=== PATIENT | female | born 1995 | race Caucasian/White ===

== ENCOUNTER 2025-03-30 01:40 | Inpatient (IN) ==
--- OUTSIDE RECORDS SUMMARY | 2025-03-30 01:50 | External Medical Summary | Summary of Care ---
Author Name Unknown Organization [facility] Address [address] [place] [address] Phone [phone] Care Team Providers Care Borderer Name Role Phone Isra Martins MD Primary Care Provider + Encounter Details Date Type Department Care Team (Late st Contact Info) Description 03/26/2025 8:00 AM EDT Office Visit Solar Sales Advisor Obstetrics Maternal Medicine, [facility] [address] [place] [address] Valentina Cole, DO [address], [place] [id number] Insulin controlled gestational diabetes mellitus (GDM) in third trimester*; Ultrasound for screening for growth restriction; 38 weeks gestation of Allergies Active Allergy Reactions Criticality Noted Date Comments Ragweed 08/07/2022 HAY documented as of this encounter (statuses as of 03/26/2025) Medications Fluticasone Propionate HFA 44 MCG/ACT Inhalation Aerosol (Flovent HFA)Indications :Allergic rhinitis due to animal hair and dander Inhale by mouth 1 Puff in the morning AND 1 Puff before bedtime. 10.6 g 12 Active Additional Information Patient not taking.Reported on 10/02/2024 Ventolin HFA 108 (90 Base) MCG/ACT Inhalation Aerosol Solution Inhale by mouth 2 Puffs every 4 hours as needed for Wheezing. 18 g 1 2 Active Additional Information Patient not taking.Reported on 05/30/2024 6.75-0.2 MG Oral Tablet Take by mouth. Act odessa Cetirizine HCl 10 MG Oral Tablet Chewable (ZyrTEC) Take 1 Tablet by mouth in the morning. Active Docusate Sodium 100 MG Oral Capsule (Colace) Take 1 Capsule by mouth in the morning. Active documented as of this encounter (statuses as of 03/26/2025) Active Problems Problem Noted Date Diagnosed Date Insulin controlled gestation al diabetes mellitus (GDM) in third trimester 11/17/2024 Overview (01/01/2025): 01/01/2025: per MyG message from patient: I wanted to add to medical history for this so it s correct in my file that I am on insulin for the gestational diabetes. I am currently taking 26 units for fasting at night, but I ve been back and forth with high and normal numbers so I think we may be increasing to 30 units soon. [facility] is not managing patient's gestational diabetes at this time. Assessment & Plan (03/26/2025 10:00 AM EDT): Assessment & Plan (02/26/2025 6:24 PM EDT): She presents for follow-up of growth secondary to GDMA2. Today's ultrasound notes the following: The estimated weight is appropriate for gestational age in the 61st percentile. The visualized anatomy is unremarkable in appearance. The SANIYA is normal. A BPP is 8/8. Assessment & Plan (11/17/2024 9:46 AM EST): The patient states that she was recently diagnosed with gestational diabetes and she is controlling it by diet alone. She states that her fasting values are elevated. I asked her what she was eating prior to going to bed and she states that she was eating a high-protein, low-carbohydrate snack. I told her that it may be that because of the low carbohydrate take at bedtime, she is becoming hypoglycemic in the middle of the night and her elevated blood sugars in the morning are the result of the hypoglycemic events at night. I told her that she should check her blood sugars at 2 or 3 in the morning to see what they are. If she is hypoglycemic in middle of the night, then the treatment would be increase in the carbohydrate intake prior to bedtime. Subchorionic hematoma in second trimester 2023 Overview (10/02/2024): Images from the original note were not included. 09/24/2024: Subchorionic hematoma noted on ultrasound: 1..3 x 1.3 x 1.8 cm Patient did experience vaginal bleeding in the past, two episodes of heavy bleeding and was seen in ER. Currently having vaginal spotting Mild cramping on occasion Assessment & Plan (11/17/2024 9:44 AM EST): I reviewed the ultrasound with her. The anatomy that was visualized appears unremarkable and the biometry is appropriate for the gestational age. The amniotic fluid volume is subjectively normal and the fetus is in the vertex presentation There is a subchorionic hematoma that directly overlies the placenta. The placenta itself is posterior and there is no placenta previa present.nd with her. She states that she has continued vaginal bleeding that is mostly brown maroon. Over the past several weeks, the amount of blood has decreased. I told her that I would expect for her to have continuing vaginal bleeding as the hematoma is directly over her cervix. We discussed the significance with the color of the blood, with right indicating fresh bleeding. We discussed the importance of come into the hospital for calling her primary OB if she has any leakage of clear fluid, bright red bleeding or cramping. Assessment & Plan (10/02/2024 12:59 PM EST): CONSIDERATIONS: Reviewed that the cause of subchorionic hemorrhage (TAMIR) is largely unknown. However, in the absence of vaginal bleeding, a small subchorionic hemorrhage (TAMIR) is not associated with an increased rate of poor outcomes. Most asymptomatic subchorionic hemorrhage (TAMIR) resolve by 20 weeks gestation. Subchorionic hemorrhage (TAMIR) associated with vaginal bleeding is associated with an increased risk for miscarriage, placental abruption, premature rupture of amniotic membranes, and labor/delivery. outcome associated with subchorionic hemorrhage (TAMIR) also relates to location, with worse outcomes observed for retroplacental hematomas, compared to marginal hematomas. The location, rather than the size of a subchorionic hemorrhage (TAMIR) may be the most important predictor of outcome. Evidence relating to the size of the hematoma and the risk of adverse outcomes is inconclusive. RECOMMENDATIONS: Expectant management is recommended with close monitoring of maternal tolerance of bleeding. Anxiety and depression 10/02/2024 Overview (10/02/2024): History of anxiety and depression No current medications Reports a stable mood in . Denies any suicidal or homicidal ideation. Reports she has a good support system at home. Assessment & Plan (10/02/2024 12:50 PM EST): CONSIDERATIONS: Untreated maternal anxiety and/or depression may be associated with an increased risk of multiple poor obstetrical outcomes including miscarriages, low weight, and delivery. Women with a history of anxiety or depression are at risk for recurrence both during and/or the period. Studies of first-trimester SSRI exposure do not demonstrate consistent data to support an increased risk for structural malformations. Anti-anxiety or depression medications have been associated with transient effects (withdrawal syndrome). RECOMMENDATIONS: Mental illness can and should be treated during when the benefits of treatment outweigh potential risks. Referral to behavioral health services as clinically indicated. Maternal asthma complicating Overview (10/02/2024): Managed with Albuterol as needed 10/02/24 last albuterol use: > 6 months ago Denies hospitalizations or intubations due to asthma Assessment & Plan (10/02/2024 12:50 PM EST): CONSIDERATIONS: Asthma symptoms may improve, worsen or remain unchanged in severity in . Asthma is generally managed the same in as in the non- patient, as asthma-control medications are considered safe in . If asthma is well-controlled with medications prior to , it is recommended to continue the same medication regimen during . A patient should seek medical care immediately if an asthma flare does not respond to therapy. Mild and well-controlled moderate asthma can be associated with excellent maternal and outcomes. Severe and poorly controlled asthma may be associated with increased morbidity and mortality. Asthma management includes monitoring of lung function with pulmonary function testing (when indicated), avoidance of triggers (such as tobacco smoke, mold, dust mite exposure, animal dander and cockroaches), and a step-care approach to pharmacologic therapy based on the severity of the patient's asthma. RECOMMENDATIONS: Inhaled corticosteroids are the mainstay of therapy for all patients except those with intermittent asthma. If patients are routinely requiring rescue inhaler (such as albuterol, Ventolin, ProAir, Atrovent, or Proventil) use more than twice weekly, we recommend adding a low-dose inhaled corticosteroid. [Pulmicort (budesonide) is preferred to use in .] If patients are routinely requiring rescue inhaler use daily, we recommend adding a combined low-dose inhaled corticosteroid/long-acting beta-agonist [such as Advair (fluticasone/salmeterol) or Symbicort (budesonide/formoterol)] or a medium dose inhaled corticosteroid. Patient should discuss these treatment options with her primary OB provider or PCP. Typically, patients do not need stress dose steroids as long as they continue their usual dose perioperatively (or during labor) and do not have primary renal failure or other problems with the pituitary axis. Medications such as prostaglandin F2a (including Hemabate), ergonovine, and indomethacin (in patients who are aspirin allergic) should be used with caution. Patients with moderate or severe persistent asthma should have Maternal- Medicine ultrasound for anatomy at 19-20 weeks. surveillance with growth ultrasounds and non-stress tests should be considered starting at 32 weeks. Supervision of high risk in [facility] 10/02/2024 Family history of von Willebrand disease 024 Overview (10/02/2024): Adolph (FOB) and Ike (son) both + von Willebrand disease Pt aware of possibility that this baby may have it, Plans to have genetic testing soon after . Genetic counseling in past. Plans follow up genetic counseling if needed, after delivery. 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 03/02/2022 Primary osteoarthritis of fi rst carpometacarpal joint of right hand 08/06/2019 Idiopathic scoliosis 03/17/2015 Dysmenorrhea 06/07/2013 Overview (03/19/2015): OCPs Screening for lipid disorders 06/05/2012 Estimated Date of Delivery Comme nts Yes 04/08/2025 Based on last me nstrual period of 07/02/2024 (Exact Date) documented as of this encounter (statuses as of 03/26/2025) Resolved Problems Problem Noted Date Diagnosed Date Resolved Date with 13 completed weeks gestation 06/13/2023 10/02/2024 Ganglion cyst 07/18/2014 08/06/2019 Constipation 11/22/2009 Overview (02/03/2016): ICD-10 update of inactive term documented as of this encounter (statuses as of 03/26/2025) Immunizations Name Administration Dates Next Due HPV Vaccine, 4-Valent 01/20/2015,08/26/2014,04/2014 Hepatitis A, Ped/Adol., 18 y ear and below, 2-Dose 01/20/2015,07/18/2014 Meningococcal Conjugate Vacc ine (Menactra/Menveo) 07/18/2014,06/05/2012 TDAP, Age 7 and older, IM (Adacel) 05/31/2011 Varicella Vaccine (Chicken Pox) 09/10/2003 documented as of this encounter Social History Tobacco Use Types Packs/Day Years Used Date Smoking Tobacco: Never Smokeless Tobacco: Never Comments:Vape in past, stopp ed with knowledge of the Alcohol Use Standard Drinks/Week Comments Not Currently 0 (1 standard drink = 0.6 oz pur e alcohol) social PHQ-2 Answer Date Recorded PHQ Adult Total Score 0 08/28/2022 Hunger Vital Sign Answer Date Recorded Within the past 12 months, y ou worried that your food would run out before you got the money to buy more. Never true 08/28/20 22 Within the past 12 months, t he food you bought just didn't last and you didn't have money to get more. 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 Normal growth with EFW 3216 g at 46%ile. Normal SANIYA at 11.8 cm. Cephalic presentation. BPP 06/19. I reviewed the ultrasound images. Stefani was given the opportunity to meet with me if she had any questions. Please refer to the ultrasound report for additional details about today's ultrasound examination. RECOMMENDATIONS: Follow up with MFM for ultrasound as clinically indicated. 2x weekly NSTs. See formal MFM consultation note. Thank you for allowing us to participate in the care of this patient. Please call with any questions. Valentina Cole DO 03/26/2025 9:59 AM documented in this encounter Miscellaneous Notes * Assessment & Plan Note - Valentina Cole DO - 03/26/2025 10:00 AM EDT Associated Problem(s): Insulin controlled gestational diabetes mellitus (GDM) in third trimester documented in this encounter Plan of Treatment Health Maintenance Due Date Last Done Comments Depression Monitoring 2008 Pneumococcal Vaccine: Pediatrics (0 to 5 Years) and At-Risk Patients (6 to 18 Years and 19+ Years) (1 of 2 - PCV) 2015 DTap/Tdap Vaccines (7 - Td or Tdap) 05/31/2021 05/31/2011, 07/10/2002, 06/21/1998, Additional history exists Pap Smear 11/02/2023 11/02/2020, 01/2018, 03/14/2018 COVID-19 Vaccine ( season) 2024 *SPIROMETRY ONCE FOR ASTHMA-ADULT 10/04/2024 Influenza Vaccine (FLU shot) (Season Ended) 2025 Hepatitis B Vaccine Completed 07/10/2002, 02/14/1997, 1996 MENINGOCOCCAL (MENACTRA/MENVEO) Completed 07/18/2014, 07/18/2014, 06/05/2012, Additional history exists HPV (Gardasil) Vaccine Completed 5, 08/26/2014, 07/18/2014 Gonorrhea / Chlamydia Screen Discontinued 03/14/2018, 06/22/2014 Meningitis B Vaccine (Bexsero/Trumemba) Aged Out No longer eligible based on patient's age to complete this topic documented as of this encounter Medical Devices Not on filedocumented as of this encounter Visit Diagnoses Diagnosis Subchorionic hematoma in first trimester, single or unspecified fetus- Primary Anxiety and depression Dysthymic disorder Maternal asthma complicating Other current maternal conditions classifiable elsewhere, complicating , childbirth, or the puerperium, unspecified as to episode of care Supervision of high risk in first trimester Unspecified high-risk with 13 completed weeks gestation Family history of von Willebrand disease Family history of other blood disorders Current severe episode of major depressive disorder without psychotic features without prior episode (HCC)- Primary Anxiety and depression Dysthymic disorder Maternal asthma complicating Other current maternal conditions classifiable elsewhere, complicating , childbirth, or the puerperium, unspecified as to episode of care Family history of von Willebrand disease Family history of other blood disorders Subchorionic hematoma in second trimester, single or unspecified fetus Diet controlled gestational diabetes mellitus (GDM) in second trimester Insulin controlled gestational diabetes mellitus (GDM) in third trimester- Primary Insulin controlled gestational diabetes mellitus (GDM) in third trimester- Primary Ultrasound for screening for growth restriction screening for growth retardation using ultrasonics 38 weeks gestation of state, incidental documented in this encounter Care Teams Borderer Relationship Specialty Start Date End Date Damaske, Isra Av, MD [address] [id number] PCP - General Family Medicine 03/17/15 documented as of this encounter
--- OUTSIDE RECORDS SUMMARY | 2025-03-30 01:50 | External Medical Summary | Summary of Care ---
Author Name Unknown Organization [facility] Address [address] [place] [address] Phone [phone] Care Team Providers Care Supervising Airplane Pilot Name Role Phone Isra Martins MD Primary Care Provider + Encounter Details Date Type Department Care Team (Late st Contact Info) Description 03/26/2025 8:00 AM EDT Office Visit Instructional Technologist Obstetrics Maternal Medicine, [facility] [address] [place] [address] Valentina Cole, DO [address] [place], [place] [id number] Insulin controlled gestational diabetes mellitus (GDM) in [...] may be increasing to 30 units soon. [facility] is not managing patient's gestational diabetes [...] 32 weeks. Supervision of high risk in [facility] 10/02/2024 Family history of von Willebrand disease [...] 03/26/2025) Immunizations Name Administration Dates Next Due DTP Vaccine 06/21/1998, 7,04/20/1997,02/17 DTaP Dipth/Tet/Acell Pertussis (Infanrix), Peds 07/10/2002 HIB PRP-T, 4 Dose, PF, IM (H iberix, ActHib) 03/22/1998,06/29/1997,04/20/1997,02/17 HPV Vaccine, 4-Valent 01/20/2015,08/26/2014,04/2014 Hepatitis A, Ped/Adol., 18 y ear and below, 2-Dose 01/20/2015,07/18/2014 Hepatitis B, 0-19 yrs 07/10/2002,02/14/1997,06/1997 MMR - Measles/Mumps/Rubella Vaccine 07/10/2002,0 12/22/1997 Meningococcal Conjugate Vacc ine (Menactra/Menveo) 07/18/2014,06/05/2012 OPV - Polio Virus Vaccine (Oral) 998,06/29/1997,04/20/1997,02/17 TDAP, Age 7 and older, IM (Adacel) 05/31/2011 Varicella Vaccine (Chicken Pox) 09/10/2003,12/22 documented as of this encounter Social History [...] incidental documented in this encounter Care Teams Supervising Airplane Pilot Relationship Specialty Start Date End Date Isra Martins MD [address] [id number] PCP - General Family Medicine 03/17/15 documented as of this encounter
--- NOTE | 2025-03-30 03:35 | History & Physical Report ---
Date of Service March 30, 2025 Assessment & Plan (1) Normal labor: Plan: Cervical change with prior repeat. Pain in suprapubic area noted. Will proceed now to repeat with tubal ligation. History of Present Illness Primary Care Provider: Paco Ajit Richardson, DO 29yo at 38w5d with history of prior in 2019, scheduled for RCS/BTL in 4 days. Stefani and her partner had intercourse last evening, and onset of contractions occurred thereafter. Contractions were every 2-3 minutes initially and have spaced further apart now, however have gradually become more painful. The pain is sharp and low in the suprapubic area and seems to correlate with both contractions and movements. No LOF, no VB, good FM. Allergies Allergy/AdvReac Type Severity Reaction Status Date / Time rabbit dander Allergy Severe Verified 03/23/25 14:49 No Known Drug Allergies Allergy Verified 03/23/25 14:49 Home Medications Medication Instructions Recorded Confirmed Type acetone (urine) test (Ketone Urine #50 ea 11/13/24 03/23/25 Rx Test strips) blood sugar diagnostic (OneTouch #150 ea 11/13/24 03/23/25 Rx Verio test strips) blood-glucose meter (OneTouch #1 ea 11/13/24 03/23/25 Rx Verio Reflect Meter) lancets 33 gauge (OneTouch Delica #150 ea 11/13/24 03/23/25 Rx Plus Lancet) pen needle, diabetic 32 gauge x #100 ea 11/21/24 03/23/25 Rx 5/32" (BD Ultra-Fine Alecia Pen Needle) insulin NPH isoph U-100 human 100 35 unit subcut HS 03/13/25 03/30/25 History unit/mL (3 mL) subcutaneous pen (Novolin N FlexPen) cetirizine 10 mg tablet (Zyrtec) 10 mg PO DAILY PRN allergies 03/23/25 03/30/25 History docusate sodium 100 mg capsule 200 mg PO HS 03/23/25 03/30/25 History (Colace) vitamins no.144-folic 2 tab PO DAILY 03/23/25 03/30/25 History acid 400 mcg chewable tablet () Patient History Medical History Acid reflux Anxiety and depression no meds, uses med marijuana when not Arthritis Asthma "only when i get sick- need inhaler" Chronic idiopathic urticaria Family history of high cholesterol History of COVID-19 (2021) developed pleurisy post covid Hx of migraines Hx of pleurisy (2021) post covid- states has "lung issues" with any type of cold/flu Hx of varicella Insulin controlled gestational diabetes mellitus (GDM) during Medical marijuana use states outside of Missed Scoliosis Seasonal allergies Surgical History History of (09/2020) History of tonsillectomy and adenoidectomy Ledger teeth removed Family History Grandmother No problems noted. Mother Ovarian cyst Osteoporosis Dyslipidemia Breast cancer Father Dyslipidemia Grandmother Hypertension Aunt Twins live born in hospital Uncle Down's syndrome Brother No problems noted. Other Von Willebrand disease Denies family history of Ovarian cancer Prostate cancer Colorectal cancer Social History (Updated 03/13/25 @ 10:19 by Trena Camarena, NAOMI) Smoking Status: Never smoker Tobacco Type: Cigarettes Age Started Using Tobacco: 21; Age Quit Using Tobacco: 28; Second Hand Exposure: No; Do You Dip or Chew Tobacco: No; Hx Alcohol Use: No Hx Substance Use: No Preferred Language: Andorran Communication Ability: Effective It Investment/Portfolio Manager Required: No Beliefs That Will Affect Care: None marital status: marital status details: Adolph Noland (29) [phone] Current Living Situation: Spouse and Family Current Living Situation Comment: LIves with spouse, son, 1dog, 3 cats spouse to lencho benjmain current occupational status: employed current occupation: [employer] How many Children do You have: 1 Other Information That Helps Us Care for You: No Feels Safe at Home: Yes Childhood Exposure to Second-Hand Smoke: Yes Diet: regular Diet Comment: GDM Dental Care, Regularly: Yes Physical Activity Frequency: Daily Seatbelt Use: always Sunscreen Use: Yes Assistive Devices: None Physical Exam Genitourinary: FHT Cat 1 Cervix 3/50/-2 on arrival, now 4/50/-2 one hour later on recheck. No LOF or VB. Contractions initially Q2-3 per toco, now Q7 last interval. Results & Data Vital Signs (Past 12 Hours) Vital Signs Pulse Resp BP Pulse Ox 03/30/25 03:27 105 H 100 03/30/25 03:22 101 H 99 03/30/25 03:17 95 H 100 03/30/25 02:02 103 H 104/60 03/30/25 01:57 18 Coding Level of Care Code None Diagnoses Normal labor O80; Z37.9
[2025-03-30] MEDS: LACTATED RINGER'S 1,000 ML IV SCH ×2 (03:56→13:15)
[2025-03-30] MEDS: ACETAMINOPHEN 500 MG TAB PO ONE (04:01)
[2025-03-30 04:09] LABS: Hemoglobin 12.9 g/dl (12.0-16.0); Mean Corpuscular Hgb Conc 33.9 g/dL (32.0-36.0); Mean Corpuscular Volume 88.4 fL (80.0-100.0); Mean Platelet Volume 11.9 fL (9.4-12.4); Platelet Count 281 K/uL (130-400); RDW Coefficient of Variation 13.7 % (11.5-14.5); RDW Standard Deviation 43.8 fL (36.4-46.3); White Blood Count 14.81 K/ul (4.8-10.8)
[2025-03-30] MEDS ORDERED: KETOROLAC 30 MG/ML VIAL ONE (04:17)
[2025-03-30] MEDS ORDERED: DEXAMETHASONE SOD INJ 4 MG/ML VIAL ONE (04:17)
[2025-03-30] MEDS ORDERED: ONDANSETRON INJ 2 MG/ML 2 ML VIAL ONE (04:17)
[2025-03-30] MEDS ORDERED: PHENYLEPHRINE HCL 25 MG/250 ML NSS IV ONE (04:17)
[2025-03-30] MEDS ORDERED: OXYTOCIN 10 UNITS/ML VIAL ONE (04:17)
[2025-03-30] MEDS ORDERED: MoRPHine SULFATE PF 1 MG/ML 10 ML AMP/VIAL ONE (04:18)
[2025-03-30] MEDS ORDERED: fentaNYL citrate PF 100 MCG/2 ML VIAL ONE (04:18)
[2025-03-30] MEDS: CITRIC ACID/SODIUM CITRATE 15 ML UDC PO ONE (04:26)
[2025-03-30] MEDS: ceFAZolin 2000MG 2,000 MG/15 ML SYR IV ONE (04:29)
[2025-03-30] MEDS ORDERED: LACTATED RINGER'S 1,000 ML IV SCH (04:45)
[2025-03-30] MEDS ORDERED: ePHEDrine sulfate 50 MG/ML AMP IV PRN (05:05)
[2025-03-30] MEDS ORDERED: ONDANSETRON INJ 2 MG/ML 2 ML VIAL IV PRN ×2 (05:05→23:05)
[2025-03-30] MEDS ORDERED: diphenhydrAMINE 50 MG/ML VIAL IV PRN ×2 (05:05→23:00)
[2025-03-30] MEDS ORDERED: NALOXONE HCL 1 MG in SODIUM CHLORIDE 0.9% 1,000 ML IV PRN (05:05)
[2025-03-30] MEDS ORDERED: HYDROmorphone INJ 0.5 MG/0.5 ML SYR IV PRN ×2 (05:05→23:05)
[2025-03-30] MEDS ORDERED: PROMETHAZINE 6.25 MG/50.25 ML BAG IV PRN (05:05)
[2025-03-30] MEDS ORDERED: LACTATED RINGER'S 500 ML IV PRN (05:05)
[2025-03-30] MEDS ORDERED: NALOXONE HCL 0.4 MG/1 ML VIAL/CARP IV PRN (05:05)
[2025-03-30] MEDS ORDERED: NO NARCOTICS OR SEDATIVES SCH (05:15)
[2025-03-30] MEDS ORDERED: DC INTRASPINAL MORPHINE SCH (05:15)
[2025-03-30] MEDS: OXYTOCIN 20 UNITS/LR 1,002 ML IV SCH (05:20)
--- NOTE | 2025-03-30 05:26 | Operative Report ---
Post Operative Report Pre & Post Diagnosis Operation Date: 03/30/25 03:45 Pre-Op Diagnosis: labor, prior section, declines tolac, desires tubal Post-Op Diagnosis: same as pre-op I identified the patient and participated in the time-out.: Yes Procedure Operation Date: 03/30/25 03:45 Actual Procedures Repeat Low Transverse Section and Bilateral salpingectomy Surgeon Gisela Pal MD Vacuum Tank Tender Lucia Rivera RN Quantitative Blood Loss (QBL) 409 Findings Consistent with Post-Op Diagnosis Specimens placenta, cord blood Anesthesia Type Spinal Complications none Disposition Accompanied Patient To Recovery: Yes Disposition: L&D Description of Procedure The patient was placed operating table in the supine position with a leftward tilt. She was prepped and draped in standard sterile fashion. The anesthetic was tested and found to be adequate. A time-out was held, identifying correct patient, procedure, positioning and preoperative antibiotics. There were no concerns. A Pfannenstiel skin incision was made with a knife and taken down to the underlying layer of fascia. The fascia was incised in the midline with the knife and taken out laterally with scissors. The superior edge of the fascial incision was grasped, elevated and dissected off the underlying rectus both superiorly and inferiorly. The muscles were bluntly in the midline. The peritoneum was entered bluntly. The incision was then stretched. The bladder retractor was placed. The vesicouterine peritoneum was identified, entered with scissors and taken out laterally with scissors. The bladder flap was created digitally. A hysterotomy incision was created transversely in the lower uterine segment, final entry being accomplished in a blunt manner with the dielectric testing machine operator's fingers. Clear amniotic fluid was encountered. The dielectric testing machine operator's hand was used to elevate the head to the hysterotomy. The head was delivered using mild fundal pressure, and the shoulders and body followed without diff iculty. The cord was clamped and cut and the infant was then handed off to the awaiting vegetable picker. Cord blood was obtained. The placenta was Manually extracted. The uterus was exteriorized and cleared of all clot and debris with moistened laparotomy sponges. The hysterotomy incision was repaired in a running locked layer of 0-vicryl with excellent hemostasis. The ovaries and tubes were seen to be normal bilaterally. The tubes were excised using Ligasure. The uterus was gently replaced in the abdomen, and the gutters were cleared of clot and debris. A final inspection of the hysterotomy revealed good hemostasis. The rectus muscles were allowed to reapproximate naturally. The fascia was then reapproximated with 1 Vicryl in a running nonlocked manner. The fascia was examined and found to be free of defect following closure. The subcutaneous tissue was copiously irrigated and reapproximated with 0-chromic, then the skin edges were closed with 4-0 monocryl in a subcuticular fashion. A dermabond dressing was applied. The worrell was found to be draining clear yellow urine at completion of the procedure. I attest to the content of the Intraoperative Record and any orders documented therein. Any exceptions are noted below. I attest to the content of the Intraoperative Record and any orders documented therein. Any exceptions are noted below. OB Procedure Charges [id number] Add on Tubal for C/S
[2025-03-30] MEDS ORDERED: BENZOCAINE 20% SPRY 85 APPLN/85 GM CAN EXT PRN (05:34)
[2025-03-30] MEDS ORDERED: HYDROCORTISONE ACETATE 25 MG SUPP PR PRN (05:34)
[2025-03-30] MEDS ORDERED: SENNA 8.6 MG TAB PO PRN (05:34)
[2025-03-30] MEDS ORDERED: CALCIUM CARBONATE 500 MG CHEWABLE TAB PO PRN (05:34)
[2025-03-30] MEDS: KETOROLAC 30 MG/ML VIAL IV SCH (05:42)
[2025-03-30 05:51] LABS: Amphetamines+Metham, Urine Neg (Neg); Barbiturates, Urine Neg (Neg); Benzodiazepine, Urine Neg (Neg); Cocaine, Urine Neg (Neg); Fentanyl, Urine Neg (Neg); MDMA (Ecstacy), Urine Neg (Neg); Marijuana, Urine Neg (Neg); Methadone, Urine Neg (Neg); Opiate, Urine Neg (Neg); Phencyclidine, Urine Neg (Neg)
[2025-03-30] MEDS: SIMETHICONE 80 MG CHEW PO SCH (07:35)
[2025-03-30] MEDS: DOCUSATE SODIUM 100 MG CAP PO SCH (07:35)
[2025-03-30] MEDS: PRENATAL VITAMIN 1 TAB PO SCH (07:35)
[2025-03-30] MEDS: FERROUS SULFATE 325 MG TAB PO SCH (07:36)
--- NOTE | 2025-03-30 08:20 | Anesthesiology Progress Note ---
Date of Service March 30, 2025 Anesthesia Post Procedure Vital Signs Vital Signs: Temp Pulse Resp BP Pulse Ox O2 Del Method 03/30/25 07:37 72 96 03/30/25 07:32 61 94 03/30/25 07:30 97.7 F 18 03/30/25 07:30 70 93/56 L 03/30/25 07:27 59 L 95 03/30/25 07:23 62 94 03/30/25 07:22 61 94 03/30/25 07:20 71 95/60 L 03/30/25 07:17 73 96 03/30/25 07:12 65 95 03/30/25 07:10 53 L 89/54 L 03/30/25 07:07 60 98 03/30/25 07:02 62 98 03/30/25 07:00 18 03/30/25 07:00 80 93/54 L 03/30/25 06:57 60 96 03/30/25 06:52 73 98 03/30/25 06:47 62 96 03/30/25 06:42 66 95 03/30/25 06:40 74 88/59 L 03/30/25 06:38 66 92 03/30/25 06:37 59 L 96 03/30/25 06:32 71 96 03/30/25 06:31 64 92/58 L 03/30/25 06:30 18 03/30/25 06:29 64 94 03/30/25 06:27 66 97 03/30/25 06:22 61 97 03/30/25 06:20 18 Room Air 03/30/25 06:20 71 88/52 L 03/30/25 06:19 78 94 03/30/25 06:17 75 96 03/30/25 06:12 77 95 03/30/25 06:10 18 03/30/25 06:10 83 101/59 L 03/30/25 06:09 76 92 03/30/25 06:07 74 96 03/30/25 06:02 86 97 03/30/25 06:00 18 Room Air 03/30/25 06:00 77 116/56 L 03/30/25 05:57 83 97 03/30/25 05:52 78 97 03/30/25 05:50 18 Room Air 03/30/25 05:50 75 90/62 L 03/30/25 05:47 75 98 03/30/25 05:42 74 98 03/30/25 05:40 18 Room Air 03/30/25 05:40 85 97/59 L 03/30/25 05:37 70 98 03/30/25 05:32 75 97 03/30/25 05:30 18 Room Air 03/30/25 05:30 84 96/55 L 03/30/25 05:27 79 98 03/30/25 05:22 77 97/55 L 97 03/30/25 05:20 97.5 F L 18 03/30/25 05:20 97.5 F L 18 Room Air 03/30/25 04:27 93 H 98 03/30/25 04:22 99 H 98 03/30/25 04:18 100 H 88 L 03/30/25 04:17 95 H 97 03/30/25 04:12 92 H 99 03/30/25 04:07 86 97 03/30/25 04:02 91 H 97 03/30/25 03:57 82 98 03/30/25 03:44 90 98 03/30/25 03:37 82 99 03/30/25 03:35 97 H 89 L 03/30/25 03:32 99 H 100 03/30/25 03:27 105 H 100 03/30/25 03:22 101 H 99 03/30/25 03:17 95 H 100 03/30/25 02:02 103 H 104/60 03/30/25 01:57 18 Transfer of Care Handoff Completed per policy Notes Mental Status: alert / awake / arousable and participated in evaluation Patient Amnestic to Procedure: Yes Nausea / Vomiting: adequately controlled Pain: adequately controlled Airway Patency, RR, SpO2: stable & adequate BP & HR: stable & adequate Hydration State: stable & adequate Neuraxial Anesthesia: was administered and sensory block is resolving Anesthetic Complications: no major complications apparent and Pt Satisfied with anesthetic care
[2025-03-30] MEDS: ACETAMINOPHEN 325 MG TAB PO SCH (11:28)
[2025-03-30] MEDS: CETIRIZINE HCL 10 MG TABLET PO PRN (11:34)
[2025-03-30] MEDS: NALOXONE HCL 0.08 MG in SYRINGE 1.8 ML IV PRN (18:31)
[2025-03-30] MEDS: NALBUPHINE HCL INJ 10 MG/ML AMP IV PRN (20:21)
[2025-03-30] MEDS ORDERED: PROMETHAZINE 12.5 MG/50.5 ML BAG IV PRN (23:05)
[2025-03-31] MEDS ORDERED: KETOROLAC 30 MG/ML VIAL IV PRN (05:22)
[2025-03-31] MEDS: diphenhydrAMINE Capsule 25 MG CAP PO PRN (05:44)
[2025-03-31] MEDS: IBUPROFEN 600 MG TAB PO SCH (05:45)
[2025-03-31 06:35] LABS: Basophils # (auto) 0.03 K/uL (0.00-0.20); Basophils % (auto) 0.3 %; Eosinophils % (auto) 0.9 %; Hematocrit (blood only) 32.6 % (37.0-47.0); Immature Granulocytes # (auto) 0.08 K/uL (0.01-0.20); Immature Granulocytes % (auto) 0.7 %; Lymphocytes # (auto) 3.32 K/uL (1.20-3.40); Lymphocytes % (auto) 28.9 %; Mean Corpuscular Hemoglobin 30.6 pg (25.0-34.0); Mean Corpuscular Hgb Conc 33.7 g/dL (32.0-36.0); Mean Corpuscular Volume 90.8 fL (80.0-100.0); Mean Platelet Volume 12.2 fL (9.4-12.4); Monocytes # (auto) 1.08 K/uL (0.11-0.59); Monocytes % (auto) 9.4 %; Neutrophils # (auto) 6.87 K/uL (1.40-6.50); Neutrophils % (auto) 59.8 %; Platelet Count 238 K/uL (130-400); RDW Coefficient of Variation 13.5 % (11.5-14.5); RDW Standard Deviation 44.2 fL (36.4-46.3); Red Blood Count 3.59 M/uL (4.20-5.40); White Blood Count 11.48 K/ul (4.8-10.8)
[2025-03-31] MEDS: DIPHTHER/TETAN/PERTUS Vaccine (Tdap, Adol/Adult) 0.5mL IM ONE (08:03)
[2025-03-31] MEDS: MoRPHine SULFATE PF 1 MG/ML 10 ML AMP/VIAL INT SPINAL ONE (08:03)
[2025-03-31] MEDS: SODIUM CHLORIDE 0.9% 1,000 ML IV SCH (08:03)
--- NOTE | 2025-03-31 08:20 | Obstetrical Progress Note ---
Date of Service March 31, 2025 Assessment & Plan (1) Encounter for care and examination after delivery: urinary retention after LTCS now with Worrell since 0200 last night. Will D/C worrell at noon today with bladder scan 2 hours later otherwise continue current post-op orders Subjective Ambulation: ambulating normally Voiding: worrell catheter in place Passing Gas:: Yes Diet Tolerance:: regular diet Lochia:: Small after worrell removed 6 hours post-op, unable to void for 6 hours with despite 2 doses of narcan. straight cathed once and now worrell inserted at 0200 last night after still not being able to void. both bladder scans in 900 cc range. pain under control, not taking narcotics. Review of Systems All systems reviewed & are unremarkable except as noted in HPI & below Physical Exam Constitutional WD/WN, vitals as above Gastrointestinal (Abdomen) Inspection/Auscultation: + abdominal surgical incision (dry and intact, no induration) Psychiatric A+Ox3, euthymic affect Genitourinary OB Exam Abdomen: + fundal height (2 below) Fundus: + firm; not tender Results & Data Vital Signs (Past 12 Hours) Vital Signs Temp Pulse Resp BP Pulse Ox O2 Del Method 03/31/25 07:20 97.9 F 73 20 92/57 L 98 Room Air 03/30/25 23:30 98.1 F 80 16 104/65 99 Room Air 03/30/25 23:00 14 99 03/30/25 22:00 16 100 03/30/25 21:00 16 99 03/30/25 20:30 16 99
[2025-03-31] MEDS: oxyCODONE HCL IR 5 MG TAB (IMMEDIATE RELEASE) PO PRN (15:05)
[2025-03-31] MEDS: bisacodyL 5 MG TABEC PO SCH (20:02)
[2025-04-01] MEDS: IBUPROFEN 600 MG TAB PO PRN (05:12)
[2025-04-01 06:47] LABS: Hematocrit (blood only) 32.7 % (37.0-47.0)
--- NOTE | 2025-04-01 06:55 | Obstetrical Progress Note ---
Date of Service April 01, 2025 Assessment & Plan (1) Encounter for care and examination after delivery: (2) Previous delivery affecting , antepartum: Plan Slow recovery this time. Overall progressing. Encourage ambulation. Encouraged routine pain meds. Not ready for d/c today. Routine care. Day #:: 2 Subjective Ambulation: limited ambulation Voiding: no voiding problems Passing Gas:: Yes Diet Tolerance:: regular diet Lochia:: Small Feeding Type:: breast feeding Patient has been very slow to move . Notes fatigue and some sob on even moving around in the room. Pain well controlled. Physical Exam Constitutional WD/WN, vitals as above Respiratory normal respiratory effort, lungs clear to auscultation Cardiovascular RRR, no murmur, no edema Extremities: no calf tenderness and no edema Gastrointestinal (Abdomen) soft, nt, +bs. Appropriately tender. ff/at u. Psychiatric A+Ox3, euthymic affect Results & Data Vital Signs (Past 12 Hours) Vital Signs Temp Pulse Resp BP Pulse Ox O2 Del Method 03/31/25 23:25 36.7 C 88 16 95/59 L 94 Room Air 03/31/25 19:50 36.7 C 80 18 99/62 L 97 Room Air
[2025-04-01 08:04] VITALS: BP 110/70; PULSE 77; RESP 18; TEMP 97.9; O2SAT 98
[2025-04-01] MEDS: bisacodyL 10 MG SUPP PR PRN (08:39)
[2025-04-01] MEDS: MAGNESIUM HYDROXIDE SUSP 30 ML UDC PO PRN (10:21)
[2025-04-01] MEDS: ACETAMINOPHEN 325 MG TAB PO PRN (15:28)
--- NOTE | 2025-04-02 15:28 | Discharge Summary ---
Date of Service April 02, 2025 Admission HPI Per Admitting Provider 29yo at 38w5d with history of prior in 2019, scheduled for RCS/BTL in 4 days. Stefani and her partner had intercourse last evening, and onset of contractions occurred thereafter. Contractions were every 2-3 minutes initially and have spaced further apart now, however have gradually become more painful. The pain is sharp and low in the suprapubic area and seems to correlate with both contractions and movements. No LOF, no VB, good FM. Discharge Data Consultations 03/30/25 03:31 Consult Anesthesiology Stat Procedures Performed Operation Date: 03/30/25 03:45 Actual Procedures p Section in LD for the of a live male child @ 0454(Bilateral) - Gisela Pal MD s Post Tubal Ligation Labor & Deliv(Bilateral) - Gisela Pal MD Hospital Course (1) Normal labor: Patient presented in labor and was managed with repeat section along with requested bilateral salpingectomy for sterilization. She had an uncomplicated hospital course and was discharged to home with usual postop medication and instructions. Plan for 6wk outpatient follow up. Coding Level of Care Code None Diagnoses Normal labor O80; Z37.9
== END 2025-04-01 16:15 | disposition home or self-care (01) | DRG 785 ==
LOC: OPB 01:40 → 4S1 01:45 → 4E2 08:24
PROC: M.PPTLD (2025-03-30 03:45)